=== PATIENT | male | born 1935 | race Caucasian/White ===

== ENCOUNTER → 2019-06-15 09:50 | Outpatient (BNVA) | payer MEDICARE, SELFPAY | PROVIDERS: Family Provider Nurse Practitioner Family; PCP Nurse Practitioner Family; Visit Provider Family Medicine | DX: I10 Essential (primary) hypertension (principal) | CPT/HCPCS: 80053; 80061; 85025 ==

== ENCOUNTER → 2019-11-15 11:16 | Outpatient (BNVA) | payer MEDICARE, SELFPAY | PROVIDERS: Family Provider Nurse Practitioner Family; PCP Nurse Practitioner Family; Visit Provider Nurse Practitioner Family | DX: I10 Essential (primary) hypertension (principal); M54.31 Sciatica, right side; N18.3 Chronic kidney disease, stage 3 (moderate); E78.5 Hyperlipidemia, unspecified | CPT/HCPCS: 80053; 80061; 85025 ==

== ENCOUNTER → 2020-08-18 11:41 | Outpatient (BNVA) | payer MEDICARE, SELFPAY | PROVIDERS: Family Provider Nurse Practitioner Family; PCP Nurse Practitioner Family; Visit Provider Nurse Practitioner Family | DX: I10 Essential (primary) hypertension (principal) | CPT/HCPCS: 80053; 80061; 82306; 82607; 84443; 85025 ==

== ENCOUNTER → 2020-08-24 10:22 | Outpatient (BNVA) | payer MEDICARE, SELFPAY | PROVIDERS: Family Provider Nurse Practitioner Family; PCP Nurse Practitioner Family; Visit Provider Nurse Practitioner Family | DX: R73.9 Hyperglycemia, unspecified (principal); N18.30 Chronic kidney disease, stage 3 unspecified | CPT/HCPCS: 83036 ==

== ENCOUNTER → 2020-10-06 09:25 | Outpatient (BNVA) | payer MEDICARE, SELFPAY | PROVIDERS: Family Provider Nurse Practitioner Family; PCP Nurse Practitioner Family; Visit Provider Nurse Practitioner Family | DX: K21.9 Gastro-esophageal reflux disease without esophagitis (principal); M25.562 Pain in left knee; G89.29 Other chronic pain; R53.83 Other fatigue; M54.2 Cervicalgia; M25.511 Pain in right shoulder; M25.512 Pain in left shoulder | CPT/HCPCS: 80053; 82306; 82607; 84550; 85025; 85651; 86038; 86140; 86431 ==

== ENCOUNTER → 2020-10-20 10:05 | Outpatient (BNVA) | payer MEDICARE, SELFPAY | PROVIDERS: Family Provider Nurse Practitioner Family; PCP Nurse Practitioner Family; Visit Provider Nurse Practitioner Family | DX: M25.472 Effusion, left ankle (principal); M79.605 Pain in left leg; M25.50 Pain in unspecified joint | CPT/HCPCS: 73610; 85379; 86618; 86666; 86757 ==

== ENCOUNTER 2020-10-25 11:47 | Outpatient (CLI) | payer MEDICARE, SELFPAY ==
--- NOTE | 2020-10-25 11:54 | USCV_ITS ---
[place] Age: 85 Gender: M : 1935 Exam Date: 10/25/2020 12:22 Ordering Phys: Mikey Kellogg MD Technologist: Danielle Pardo Exam Location: [facility] – [place] Indication: Left leg edema HISTORY: Lower extremity edema. PROCEDURES: Venous duplex imaging was performed in only the left lower extremity. The following venous structures were evaluated: common femoral vein, profunda vein, proximal portion of the greater saphenous vein, superficial femoral vein, and the popliteal vein. In addition, the posterior tibial and peroneal trunk were evaluated. FINDINGS: Normal 2-D Doppler and augmentation and compressibility throughout the lower extremity venous structures. Additional imaging through the proximal calf veins also reveals no thrombus. Limited evaluation of the greater saphenous vein is patent with no thrombus. Cystic area noted in Left popliteal area midline measuring 2.6 x1.0 x1.7 cm. CONCLUSIONS No DVT left lower extremity. Left popliteal fossa Dubois's cyst. Dr. Rebeka Olson DO (Electronically Signed) Final Date: 25 October 2020 14:16 S
== END 2020-10-25 11:48 | disposition home or self-care (01) ==
LOC: RAD 11:51
PROVIDERS: PCP Nurse Practitioner Family; Visit Provider Surgery
DX: R60.0 Localized edema (principal); M71.22 Synovial cyst of popliteal space [Baker], left knee
CPT/HCPCS: 93971

== ENCOUNTER → 2020-12-05 13:14 | Outpatient (BNVA) | payer MEDICARE, SELFPAY | PROVIDERS: PCP Nurse Practitioner Family; Visit Provider Nurse Practitioner Family | DX: Z20.822 Contact with and (suspected) exposure to COVID-19 (principal); L02.92 Furuncle, unspecified | CPT/HCPCS: 87635 ==

== ENCOUNTER → 2021-02-01 12:40 | Outpatient (BNVA) | payer MEDICARE, SELFPAY | PROVIDERS: PCP Nurse Practitioner Family; Visit Provider Internal Medicine | DX: M06.9 Rheumatoid arthritis, unspecified (principal); M25.50 Pain in unspecified joint; R70.0 Elevated erythrocyte sedimentation rate; Z11.59 Encounter for screening for other viral diseases; Z11.1 Encounter for screening for respiratory tuberculosis; N18.30 Chronic kidney disease, stage 3 unspecified; R53.83 Other fatigue; Z87.891 Personal history of nicotine dependence | CPT/HCPCS: 99204 ==

== ENCOUNTER → 2021-02-06 09:21 | Outpatient (BNVA) | payer MEDICARE, SELFPAY | PROVIDERS: PCP Nurse Practitioner Family; Visit Provider Internal Medicine | DX: N18.30 Chronic kidney disease, stage 3 unspecified (principal); Z11.59 Encounter for screening for other viral diseases; Z11.1 Encounter for screening for respiratory tuberculosis | CPT/HCPCS: 36415; 80053; 81003; 82550; 82728; 83516; 84443; 85025; 86140; 86480; 86704; 86803; 87340 ==

== ENCOUNTER 2021-02-12 07:58 | Outpatient (CLI) | payer MEDICARE, SELFPAY ==
--- NOTE | 2021-02-12 08:05 | XR_ITS ---
WS: [id number] TECHNIQUE: 2 views of the left hand CLINICAL INFORMATION: N18.3 - Chronic kidney disease, stage 3 (moderate) COMPARISON: None. FINDINGS: Normal metacarpals. Mild degenerative narrowing first second and third MCP joints. 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 Mild degenerative narrowing second and third DIP joints. No signific ant erosive changes. Radiocarpal joint: Moderate narrowing Carpal bones: Normal. XR/XR hand LT 2V [id number] IMPRESSION: 1. 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 2. No significant erosive changes.
--- NOTE | 2021-02-12 08:05 | XR_ITS ---
WS: [id number] TECHNIQUE: 2 views of the right hand CLINICAL INFORMATION: N18.3 - Chronic kidney disease, stage 3 (moderate) COMPARISON: None. FINDINGS: Normal metacarpals. Normal MCP joint. Metacarpal heads are normal in appearance. Mild degenerative na rrowing worse at the third DIP joint. IP joints are otherwise normal. No significant erosive changes. Hypertrophic spurring at the first DIP. Vascular calcifications. Radiocarpal joint: Mild degenerative narrowing Carpal bones: Normal. XR/XR hand RT 2V [id number] IMPRESSION: 1. Mild degenerative narrowing at the radiocarpal joint. 2. Degenerative narrowing third DIP joint. 3. No significant erosive changes.
--- NOTE | 2021-02-12 08:05 | XR_ITS ---
WS: [id number] SHOULDER RIGHT TECHNIQUE: 3 views of the right shoulder CLINICAL INFORMATION: N18.3 - Chronic kidney disease, stage 3 (moderate) COMPARISON: None. FINDINGS: Normal acromioclavicular joint. Normal glenohumeral joint. Acromion is normal in appearance. Normal g lenoid. No evidence of acute fracture dislocation. XR/XR shoulder RT min 2V* [id number] IMPRESSION: Normal right shoulder.
--- NOTE | 2021-02-12 08:05 | XR_ITS ---
WS: [id number] SHOULDER LEFT TECHNIQUE: 3 views of the left shoulder CLINICAL INFORMATION: M06.9 - Rheumatoid arthritis, unspecified COMPARISON: None. FINDINGS: Normal acromioclavicular joint. Normal glenohumeral joint. Acromion is normal in appearance. Normal g lenoid. No evidence of acute fracture dislocation. Sternotomy with mediastinal clips. Aortic arch calcification. XR/XR shoulder LT min 2V* [id number] IMPRESSION: Normal left shoulder.
== END 2021-02-12 07:59 | disposition home or self-care (01) ==
PROVIDERS: PCP Nurse Practitioner Family; Visit Provider Internal Medicine
DX: N18.30 Chronic kidney disease, stage 3 unspecified (principal); M06.9 Rheumatoid arthritis, unspecified
CPT/HCPCS: 73030; 73120

== ENCOUNTER → 2021-05-21 11:05 | Outpatient (BNVA) | payer MEDICARE, SELFPAY | PROVIDERS: PCP Nurse Practitioner Family; Visit Provider Internal Medicine | DX: R70.0 Elevated erythrocyte sedimentation rate; Z79.899 Other long term (current) drug therapy; M25.50 Pain in unspecified joint; N18.30 Chronic kidney disease, stage 3 unspecified | CPT/HCPCS: 80053; 85025; 85651; 86140 ==

== ENCOUNTER → 2021-05-24 12:27 | Outpatient (BNVA) | payer MEDICARE, SELFPAY | PROVIDERS: PCP Nurse Practitioner Family; Visit Provider Internal Medicine | DX: R70.0 Elevated erythrocyte sedimentation rate (principal); M05.9 Rheumatoid arthritis with rheumatoid factor, unspecified; Z79.899 Other long term (current) drug therapy; N18.9 Chronic kidney disease, unspecified; D64.9 Anemia, unspecified; Z87.891 Personal history of nicotine dependence | CPT/HCPCS: 99214 ==

== ENCOUNTER → 2021-06-27 10:13 | Outpatient (BNVA) | payer MEDICARE, SELFPAY | PROVIDERS: PCP Nurse Practitioner Family; Visit Provider Nurse Practitioner Family | DX: M05.9 Rheumatoid arthritis with rheumatoid factor, unspecified (principal); R70.0 Elevated erythrocyte sedimentation rate; Z79.899 Other long term (current) drug therapy; Z23 Encounter for immunization | CPT/HCPCS: 80053; 85025 ==

== ENCOUNTER → 2021-07-05 11:21 | Outpatient (BNVA) | payer MEDICARE, SELFPAY | PROVIDERS: PCP Nurse Practitioner Family; Visit Provider Internal Medicine | DX: R70.0 Elevated erythrocyte sedimentation rate (principal); M05.9 Rheumatoid arthritis with rheumatoid factor, unspecified; N18.9 Chronic kidney disease, unspecified; F17.220 Nicotine dependence, chewing tobacco, uncomplicated | CPT/HCPCS: 99214 ==

== ENCOUNTER → 2021-07-16 10:27 | Outpatient (BNVA) | payer MEDICARE, SELFPAY | PROVIDERS: PCP Nurse Practitioner Family; Visit Provider Nurse Practitioner Family | DX: E55.9 Vitamin D deficiency, unspecified (principal); E78.5 Hyperlipidemia, unspecified | CPT/HCPCS: 80061; 82306 ==

== ENCOUNTER → 2021-09-11 14:35 | Outpatient (BNVA) | payer MEDICARE, SELFPAY | PROVIDERS: PCP Nurse Practitioner Family; Visit Provider Internal Medicine | DX: R70.0 Elevated erythrocyte sedimentation rate (principal); M06.9 Rheumatoid arthritis, unspecified; N18.9 Chronic kidney disease, unspecified; E55.9 Vitamin D deficiency, unspecified; F17.220 Nicotine dependence, chewing tobacco, uncomplicated | CPT/HCPCS: 99214 ==

== ENCOUNTER → 2022-06-25 17:25 | Outpatient (BNVA) | payer MEDICARE, SELFPAY | PROVIDERS: PCP Nurse Practitioner Family; Visit Provider Nurse Practitioner Family | DX: E78.5 Hyperlipidemia, unspecified (principal); E55.9 Vitamin D deficiency, unspecified; L02.92 Furuncle, unspecified | CPT/HCPCS: 80053; 80061; 81000; 82043; 82306; 82607; 83735; 84443; 85025; 87070; 87075; 87077; 87184; 87205 ==

== ENCOUNTER → 2022-08-20 14:39 | Outpatient (BNVA) | payer MEDICARE, SELFPAY | PROVIDERS: PCP Nurse Practitioner Family; Visit Provider Internal Medicine | DX: M06.9 Rheumatoid arthritis, unspecified (principal); M25.50 Pain in unspecified joint; Z79.899 Other long term (current) drug therapy; R70.0 Elevated erythrocyte sedimentation rate; N18.9 Chronic kidney disease, unspecified; R21 Rash and other nonspecific skin eruption | CPT/HCPCS: 99214 ==

== ENCOUNTER → 2022-08-28 13:52 | Outpatient (BNVA) | payer MEDICARE, SELFPAY | PROVIDERS: PCP Nurse Practitioner Family; Referring Provider Internal Medicine; Visit Provider Orthopaedic Surgery | DX: M70.22 Olecranon bursitis, left elbow (principal) | CPT/HCPCS: 20605; 99203 ==

== ENCOUNTER → 2022-10-31 14:20 | Outpatient (BNVA) | payer MEDICARE, SELFPAY | PROVIDERS: PCP Nurse Practitioner Family; Visit Provider Internal Medicine | DX: M06.9 Rheumatoid arthritis, unspecified (principal); E55.9 Vitamin D deficiency, unspecified; R70.0 Elevated erythrocyte sedimentation rate; N18.9 Chronic kidney disease, unspecified; M70.20 Olecranon bursitis, unspecified elbow; R21 Rash and other nonspecific skin eruption | CPT/HCPCS: 99213 ==

== ENCOUNTER → 2022-11-14 15:29 | Outpatient (BNVA) | payer MEDICARE, SELFPAY | PROVIDERS: PCP Nurse Practitioner Family; Visit Provider Internal Medicine | DX: M06.9 Rheumatoid arthritis, unspecified (principal); M25.50 Pain in unspecified joint; Z79.899 Other long term (current) drug therapy | CPT/HCPCS: 80053; 85025; 85651; 86140 ==

== ENCOUNTER → 2023-02-27 13:25 | Outpatient (BNVA) | payer MEDICARE, SELFPAY | PROVIDERS: PCP Nurse Practitioner Family; Visit Provider Internal Medicine | DX: M70.20 Olecranon bursitis, unspecified elbow (principal); M06.9 Rheumatoid arthritis, unspecified; E55.9 Vitamin D deficiency, unspecified; N18.9 Chronic kidney disease, unspecified; R70.0 Elevated erythrocyte sedimentation rate | CPT/HCPCS: 99214 ==

== ENCOUNTER → 2023-03-04 10:04 | Outpatient (BNVA) | payer MEDICARE, SELFPAY | PROVIDERS: PCP Nurse Practitioner Family; Visit Provider Nurse Practitioner Family | DX: E55.9 Vitamin D deficiency, unspecified (principal); M06.9 Rheumatoid arthritis, unspecified; M70.20 Olecranon bursitis, unspecified elbow; N18.9 Chronic kidney disease, unspecified | CPT/HCPCS: 80053; 81000; 82550; 85025; 85651; 86140 ==

== ENCOUNTER 2023-07-04 04:45 | Emergency (ER) | payer MEDICARE, SELFPAY ==
[2023-07-04 04:52] VITALS: BP 187/68; PULSE 61; RESP 16; TEMP 36.4; O2SAT 94
[2023-07-04 05:29] LABS: Basophils % 0.7 %; Eosinophils # 0.2 10^3/uL (0.0-0.8); Hematocrit 35.6 % (37-53); Lymphocytes # 1.3 10^3/uL (0.8-4.8); Lymphocytes % 22.4 %; Mean Corpuscular HGB Conc 31.2 g/dL (30-55); Mean Corpuscular Hemoglobin 28.2 pg (27-33); Mean Corpuscular Volume 90.4 fl (82-101); Mean Platelet Volume 12.5 fL (7.4-10.4); Monocytes # 0.7 10^3/uL (0.2-0.9); Monocytes % 11.9 %; Neutrophils # 3.63 10^3/uL (1.8-7.7); Neutrophils % 60.8 %; Nucleated Red Blood Cells % 0 %; Platelet Count 118 10^3/cmm (157-399); Red Blood Count 3.94 10^6/uL (3.85-5.65); Red Cell Distribution Width 15.9 % (12.1-15.1); White Blood Count 5.97 10^3/uL (3.29-11.43)
--- NOTE | 2023-07-04 05:31 | CTR_ITS ---
PROCEDURE INFORMATION: Exam: CT Abdomen And Pelvis Without Contrast Exam date and time: 07/04/2023 5:43 AM Age: 88 years old Clinical indication: Abdominal pain; Additional info: Abd pain TECHNIQUE: Imaging protocol: Computed tomography of the abdomen and pelvis without contrast. Radiation optimization: All CT scans at this facility use at least one of these dose optimization techniques: automated exposure control; mA and/or kV adjustment per patient size (includes targeted exams where dose is matched to clinical indication); or iterative reconstruction. COMPARISON: No relevant prior studies available. RADIATION DOSE METRICS: Total DLP (mGy-cm): 588.63 FINDINGS: Diaphragm: Moderate hiatal hernia. Liver: Hepatic cysts. Gallbladder and bile ducts: Cholelithiasis. Pancreas: Normal. No ductal dilation. Spleen: Normal. No splenomegaly. Adrenal glands: Normal. No mass. Kidneys and ureters: Normal. No hydronephrosis. Stomach and bowel: Diverticulosis without evidence of diverticulitis. Appendix: No evidence of appendicitis. Intraperitoneal space: Unremarkable. No free air. No significant fluid collection. Vasculature: Unremarkable. No abdominal aortic aneurysm. Lymph nodes: Unremarkable. No enlarged lymph nodes. Urinary bladder: Unremarkable as visualized. Reproductive: Enlarged prostate. Bones/joints: Unremarkable. No acute fracture. Soft tissues: Unremarkable. CT/CT abdomen pelvis wo con [id number] IMPRESSION: 1. No acute subdiaphragmatic pathology. 2. Cholelithiasis.
--- NOTE | 2023-07-04 05:32 | W.ED.ABDPA2 ---
Documented by User: Mick Tolbert MD 07/04/23 07:54 HPI - Abdominal Pain General: Chief Complaint: Abdominal Pain Stated Complaint: Right side abd pain Time Seen by Provider: 07/04/23 04:48 History of Present Illness: 88-year-old male presents emergency department with complaints of right upper and lower quadrant abdominal pain. He states this started last night at approximately midnight and has continued to worsen. He states that he has had nausea without vomiting. He denies fevers chills or night sweats. He states he had a normal bowel movement yesterday evening. He denies hematic emesis or hematochezia. He does have a history of coronary artery disease with a coronary artery bypass graft in 1996. His son states that he did provide the patient with a single sublingual nitroglycerin and this did not relieve the patient's pain/discomfort. He currently describes the pain as a 3 out of 10 and cramping. Associated Symptoms: Reports nausea Review of Systems General: Reports: 10 or more systems reviewed and unremarkable except in HPI and below GI: Reports: abdominal pain and nausea [facility] ED PFSH: Medical History Olecranon bursitis GERD (gastroesophageal reflux disease) CAD in [place] artery Panlobular emphysema Thrombocytopenia Dyslipidemia CKD (chronic kidney disease), stage III Surgical History History of cataract extraction Social History Smoking and tobacco/nicotine status: current every day tobacco/nicotine user smokeless tobacco Smokeless tobacco user: chewing tobacco Second hand smoke exposure: No Alcohol intake: never Substance/Drug Use: never Caregiver/support person: Yes (family) Lives independently: Yes Household members: none Marital status: / service: No Current occupational status: retired Current gender identity: Male Special lila needs: No Agree to transfusion: Yes Physical Exam Narrative: EXAM NARRATIVE: Constitutional: the patient appears well nourished and of normal development. Vital signs as documented. No acute distress at present. Alert and oriented-to person, place, time and situation. Head, eyes, ears, nose, mouth, throat: Normocephalic, atraumatic. Pupils-equal, round, reactive to light. No scleral icterus. Normal-appearing external ears. Normal appearing nasal turbinates, no drainage. No obvious oral lesions, posterior oropharynx without erythema or exudates. Neck: Supple, trachea is midline, no lymphadenopathy, no jugular venous distension, thyromegaly, or carotid bruits. Carotid upstrokes are brisk bilaterally. Lungs: clear to auscultation to all lung mujica. Symmetrical rise and fall of chest, no obvious signs of increased work of breathing at present. Cardiac: Regular rate and rhythm, positive S1, S2. No murmurs, rubs or gallops that I can appreciate Abdomen: Soft, right upper and right lower quadrant tender to palpation, positive Lauren sign. Normal active bowel sounds to all quadrants. No palpable masses, no organomegaly and abdominal bruits. Extremities: 2+ pulses in the upper extremities that are equal bilaterally, 2+ pulses in the lower extremities that are equal bilaterally. Non-edematous. Moves all extremities well, sensation to all extremities are noted. Skin: Warm, dry, intact. Course Vital Signs: Vital signs: Vital Signs Temperature 97.5 F L 07/04/23 04:52 Pulse Rate 63 07/04/23 08:25 Respiratory Rate 16 07/04/23 07:33 Blood Pressure 196/84 07/04/23 08:25 Pulse Oximetry 95 07/04/23 08:25 Oxygen Delivery Me thod Room Air 07/04/23 07:33 MDM - Abdominal Pain Medical Decision Making Physical exam completed and documented, I will obtain laboratory evaluation to include a CBC, CMP, lipase, urinalysis, and a CT scan of the patient's abdomen pelvis to evaluate for possible differential diagnosis of bowel obstruction, incarcerated hernia, abdominal wall strain, abdominal wall hematoma, possible colitis, ascending cholangitis, cholecystitis, cholelithiasis and diverticulitis. Medical Records I reviewed the patient's medical records. Lab Data I reviewed the patient's lab results. 07/04/23 04:58 07/04/23 04:58 Labs/Radiology: Radiology Impressions Abdomen/Pelvis CT 07/04/23 05:31 IMPRESSION: 1. No acute subdiaphragmatic pathology. 2. Cholelithiasis. Laboratory Results WBC 5.97 10^3/uL (3.29-11.43) 07/04/23 04:58 RBC 3.94 10^6/uL (3.85-5.65) 07/04/23 04:58 Hgb 11.10 g/dL (11.27-16.99) L 07/04/23 04:58 Hct 35.6 % (37-53) L 07/04/23 04:58 MCV 90.4 fl (82-101) 07/04/23 04:58 MCH 28.2 pg (27-33) 07/04/23 04:58 MCHC 31.2 g/dL (30-55) 07/04/23 04:58 RDW 15.9 % (12.1-15.1) H 07/04/23 04:58 Plt Count 118 10^3/cmm (157-399) L 07/04/23 04:58 MPV 12.5 fL (7.4-10.4) H 07/04/23 04:58 Neut % (Auto) 60.8 % 07/04/23 04:58 Lymph % (Auto) 22.4 % 07/04/23 04:58 [place] % (Auto) 11.9 % 07/04/23 04:58 Eos % (Auto) 4.0 % 07/04/23 04:58 Baso % (Auto) 0.7 % 07/04/23 04:58 Neut # (Auto) 3.63 10^3/uL (1.8-7.7) 07/04/23 04:58 Lymph # (Auto) 1.3 10^3/uL (0.8-4.8) 07/04/23 04:58 [place] # (Auto) 0.7 10^3/uL (0.2-0.9) 07/04/23 04:58 Eos # (Auto) 0.2 10^3/uL (0.0-0.8) 07/04/23 04:58 Baso # (Auto) 0.0 10^3/uL (0.0-0.1) 07/04/23 04:58 Nucleated RBC % (auto) 0 % 07/04/23 04:58 Nucleated RBCs # 0.0 /100WBC 07/04/23 04:58 Sodium 138 mmol/L (136-145) 07/04/23 04:58 Potassium 3.9 mmol/L (3.5-5.1) 07/04/23 04:58 Chloride 104 mmol/L (98-107) 07/04/23 04:58 Carbon Dioxide 24 mmol/L (22-29) 07/04/23 04:58 Anion Gap 13.9 (5-19) 07/04/23 04:58 BUN 30 mg/dL (8-23) H 07/04/23 04:58 Creatinine 1.3 mg/dL (0.7-1.2) H 07/04/23 04:58 GFR Calculation Not Reportable 07/04/23 04:58 Glucose 142 mg/dL (65-115) H 07/04/23 04:58 Calculated Osmolality 295 mOsm/kg (285-295) 07/04/23 04:58 Calcium 8.6 mg/dL (8.5-10.5) 07/04/23 04:58 Total Bilirubin 0.2 mg/dL (0.15-1.2) 07/04/23 04:58 AST 16 U/L (0-40) 07/04/23 04:58 ALT 12 U/L (0-41) 07/04/23 04:58 Alkaline Phosphatase 75 U/L (40-130) 07/04/23 04:58 Total Protein 7.3 g/dL (6.6-8.7) 07/04/23 04:58 Albumin 3.8 g/dL (3.5-5.2) 07/04/23 04:58 Globulin 3.5 g/dL (1.3-4.6) 07/04/23 04:58 Lipase 39 U/L (13-60) 07/04/23 04:58 Urine Color Light yellow (Yellow) 07/04/23 05:20 Urine Appearance Clear (CLEAR) 07/04/23 05:20 Urine pH 5 (5-7) 07/04/23 05:20 Ur Specific [place] 1.010 (1.005-1.030) 07/04/23 05:20 Urine Protein Trace (Negative) 07/04/23 05:20 Urine Glucose (UA) Norm (Normal) 07/04/23 05:20 Urine Ketones Negative (Negative) 07/04/23 05:20 Urine Blood Neg (Negative) 07/04/23 05:20 Urine Nitrate Negative (Negative) 07/04/23 05:20 Urine Bilirubin Neg (Negative) 07/04/23 05:20 Urine Urobilinogen Neg mg/dL (Negative) 07/04/23 05:20 Ur Leukocyte Esterase Negative (Negative) 07/04/23 05:20 Urine RBC None /hpf (0-2) 07/04/23 05:20 Urine WBC None /hpf (0-5) 07/04/23 05:20 Ur Squamous Epith Cells None /hpf (0-5) 07/04/23 05:20 Amorphous Sediment Not Reportable 07/04/23 05:20 Urine Bacteria Trace /hpf (NONE) 07/04/23 05:20 Urine Mucus 1+ /hpf 07/04/23 05:20 All radiology interpretation(s) finalized by discharge Discharge Plan Discharge Patient Disposition: Home Clinical Impression: Asymptomatic cholelithiasis Constipation Qualifiers: Constipation type: unspecified constipation type Qualified Code(s): K59.00 - Constipation, unspecified Condition: Stable Prescriptions: No Action aspirin 325 mg Tablet 325 mg PO QAM Vitamin D3 Gummies 1 tab PO DAILY atorvastatin 40 mg tablet 40 mg PO QAM folic acid 1 mg tablet 1 mg PO QAM metoprolol succinate 25 mg tablet extended release 24 hr 25 mg PO BEDTIME PRN (Reason: Blood Pressure) lisinopril-hydrochlorothiazide 10-12.5 mg tablet 1 tab PO QAM esomeprazole magnesium 20 mg capsule,delayed release(DR/EC) 20 mg PO QAM cholecalciferol (vitamin D3) 1,250 mcg (50,000 unit) capsule 50,000 unit PO Q7D leflunomide 20 mg tablet 10 mg PO QAM Discharge Orders: Discharge ED (Routine); Ordered 07/04/23 Ordered By: Lencho Henry Referrals: Ena Bedoya, GABRIELE [Primary Care Provider] - Discharge Diet: Usual diet Discharge Activity: Increase activity as tolerated Patient Instructions: Constipation (ED), Opioid Safety, Pain Management Activity Restrictions/Additional Instructions: Thank you for choosing [facility] for your healthcare needs today. Please realize this is an emergency room and that we are providing you with a medical screening exam and this may not be complete and all inclusive of all the testing and or work up that you may need to determine your ailment or severity of your illness. It is very important that you follow up as instructed or that you return to the Emergency Department should you have concerns or if your condition changes or worsens in any way. You were seen today for abdominal pain CT shows a large amount of stool in the colon also shows gallbladder stones however there is no sign of acute infection in your bilirubin and liver enzymes are normal. Recommend [id number] laxatives to relieve the constipation follow-up with your primary care doctor as needed. Sign Out Sign Out Data: Patient Sign Out occurred on 07/04/23 at 06:41. Patient's care was discussed, and care was transferred from Mick Tolbert MD to Lencho Henry DO. Coding Level of Care Code ED Senior Payroll Manager for [employer] Documented by User: Lencho Henry DO 07/08/23 06:26 HPI - Abdominal Pain General: Chief Complaint: Abdominal Pain Stated Complaint: Right side abd pain Time Seen by Provider: 07/04/23 04:48 PFSH ED PFSH: Medical History Olecranon bursitis GERD (gastroesophageal reflux disease) CAD in [place] artery Panlobular emphysema Thrombocytopenia Dyslipidemia CKD (chronic kidney disease), stage III Surgical History History of cataract extraction Social History Smoking and tobacco/nicotine status: current every day tobacco/nicotine user smokeless tobacco Smokeless tobacco user: chewing tobacco Second hand smoke exposure: No Alcohol intake: never Substance/Drug Use: never Caregiver/support person: Yes (family) Lives independently: Yes Household members: none Marital status: / service: No Current occupational status: retired Current gender identity: Male Special lila needs: No Agree to transfusion: Yes Course Vital Signs: Vital signs: Vital Signs Temperature 97.5 F L 07/04/23 04:52 Pulse Rate 63 07/04/23 08:25 Respiratory Rate 16 07/04/23 07:33 Blood Pressure 196/84 07/04/23 08:25 Pulse Oximetry 95 07/04/23 08:25 Oxygen Delivery Me thod Room Air 07/04/23 07:33 MDM - Abdominal Pain Medical Decision Making Physical exam completed and documented, I will obtain laboratory evaluation to include a CBC, CMP, lipase, urinalysis, and a CT scan of the patient's abdomen pelvis to evaluate for possible differential diagnosis of bowel obstruction, incarcerated hernia, abdominal wall strain, abdominal wall hematoma, possible colitis, ascending cholangitis, cholecystitis, cholelithiasis and diverticulitis. Care assumed from Dr. Tolbert at change of shift. CT shows constipation asymptomatic cholelithiasis. Discharge home aggressive use of laxatives to relieve constipation. If has recurrence of symptoms follow-up with primary care or general surgery can return to the emergency room if necessary if has any blood in the stool or develops fever or worsening pain return. Lab Data 07/04/23 04:58 07/04/23 04:58 Labs/Radiology: Radiology Impressions Abdomen/Pelvis CT 07/04/23 05:31 IMPRESSION: 1. No acute subdiaphragmatic pathology. 2. Cholelithiasis. Laboratory Results WBC 5.97 10^3/uL (3.29-11.43) 07/04/23 04:58 RBC 3.94 10^6/uL (3.85-5.65) 07/04/23 04:58 Hgb 11.10 g/dL (11.27-16.99) L 07/04/23 04:58 Hct 35.6 % (37-53) L 07/04/23 04:58 MCV 90.4 fl (82-101) 07/04/23 04:58 MCH 28.2 pg (27-33) 07/04/23 04:58 MCHC 31.2 g/dL (30-55) 07/04/23 04:58 RDW 15.9 % (12.1-15.1) H 07/04/23 04:58 Plt Count 118 10^3/cmm (157-399) L 07/04/23 04:58 MPV 12.5 fL (7.4-10.4) H 07/04/23 04:58 Neut % (Auto) 60.8 % 07/04/23 04:58 Lymph % (Auto) 22.4 % 07/04/23 04:58 [place] % (Auto) 11.9 % 07/04/23 04:58 Eos % (Auto) 4.0 % 07/04/23 04:58 Baso % (Auto) 0.7 % 07/04/23 04:58 Neut # (Auto) 3.63 10^3/uL (1.8-7.7) 07/04/23 04:58 Lymph # (Auto) 1.3 10^3/uL (0.8-4.8) 07/04/23 04:58 [place] # (Auto) 0.7 10^3/uL (0.2-0.9) 07/04/23 04:58 Eos # (Auto) 0.2 10^3/uL (0.0-0.8) 07/04/23 04:58 Baso # (Auto) 0.0 10^3/uL (0.0-0.1) 07/04/23 04:58 Nucleated RBC % (auto) 0 % 07/04/23 04:58 Nucleated RBCs # 0.0 /100WBC 07/04/23 04:58 Sodium 138 mmol/L (136-145) 07/04/23 04:58 Potassium 3.9 mmol/L (3.5-5.1) 07/04/23 04:58 Chloride 104 mmol/L (98-107) 07/04/23 04:58 Carbon Dioxide 24 mmol/L (22-29) 07/04/23 04:58 Anion Gap 13.9 (5-19) 07/04/23 04:58 BUN 30 mg/dL (8-23) H 07/04/23 04:58 Creatinine 1.3 mg/dL (0.7-1.2) H 07/04/23 04:58 GFR Calculation Not Reportable 07/04/23 04:58 Glucose 142 mg/dL (65-115) H 07/04/23 04:58 Calculated Osmolality 295 mOsm/kg (285-295) 07/04/23 04:58 Calcium 8.6 mg/dL (8.5-10.5) 07/04/23 04:58 Total Bilirubin 0.2 mg/dL (0.15-1.2) 07/04/23 04:58 AST 16 U/L (0-40) 07/04/23 04:58 ALT 12 U/L (0-41) 07/04/23 04:58 Alkaline Phosphatase 75 U/L (40-130) 07/04/23 04:58 Total Protein 7.3 g/dL (6.6-8.7) 07/04/23 04:58 Albumin 3.8 g/dL (3.5-5.2) 07/04/23 04:58 Globulin 3.5 g/dL (1.3-4.6) 07/04/23 04:58 Lipase 39 U/L (13-60) 07/04/23 04:58 Urine Color Light yellow (Yellow) 07/04/23 05:20 Urine Appearance Clear (CLEAR) 07/04/23 05:20 Urine pH 5 (5-7) 07/04/23 05:20 Ur Specific [place] 1.010 (1.005-1.030) 07/04/23 05:20 Urine Protein Trace (Negative) 07/04/23 05:20 Urine Glucose (UA) Norm (Normal) 07/04/23 05:20 Urine Ketones Negative (Negative) 07/04/23 05:20 Urine Blood Neg (Negative) 07/04/23 05:20 Urine Nitrate Negative (Negative) 07/04/23 05:20 Urine Bilirubin Neg (Negative) 07/04/23 05:20 Urine Urobilinogen Neg mg/dL (Negative) 07/04/23 05:20 Ur Leukocyte Esterase Negative (Negative) 07/04/23 05:20 Urine RBC None /hpf (0-2) 07/04/23 05:20 Urine WBC None /hpf (0-5) 07/04/23 05:20 Ur Squamous Epith Cells None /hpf (0-5) 07/04/23 05:20 Amorphous Sediment Not Reportable 07/04/23 05:20 Urine Bacteria Trace /hpf (NONE) 07/04/23 05:20 Urine Mucus 1+ /hpf 07/04/23 05:20 Discharge Plan Discharge Patient Disposition: Home Clinical Impression: Asymptomatic cholelithiasis Constipation Qualifiers: Constipation type: unspecified constipation type Qualified Code(s): K59.00 - Constipation, unspecified Condition: Stable Prescriptions: No Action aspirin 325 mg Tablet 325 mg PO QAM Vitamin D3 Gummies 1 tab PO DAILY atorvastatin 40 mg tablet 40 mg PO QAM folic acid 1 mg tablet 1 mg PO QAM metoprolol succinate 25 mg tablet extended release 24 hr 25 mg PO BEDTIME PRN (Reason: Blood Pressure) lisinopril-hydrochlorothiazide 10-12.5 mg tablet 1 tab PO QAM esomeprazole magnesium 20 mg capsule,delayed release(DR/EC) 20 mg PO QAM cholecalciferol (vitamin D3) 1,250 mcg (50,000 unit) capsule 50,000 unit PO Q7D leflunomide 20 mg tablet 10 mg PO QAM Discharge Orders: Discharge ED (Routine); Ordered 07/04/23 Ordered By: Lencho Henry Referrals: Ena Bedoya FNP [Primary Care Provider] - Discharge Diet: Usual diet Discharge Activity: Increase activity as tolerated Patient Instructions: Constipation (ED), Opioid Safety, Pain Management Activity Restrictions/Additional Instructions: Thank you for choosing [facility] for your healthcare needs today. Please realize this is an emergency room and that we are providing you with a medical screening exam and this may not be complete and all inclusive of all the testing and or work up that you may need to determine your ailment or severity of your illness. It is very important that you follow up as instructed or that you return to the Emergency Department should you have concerns or if your condition changes or worsens in any way. You were seen today for abdominal pain CT shows a large amount of stool in the colon also shows gallbladder stones however there is no sign of acute infection in your bilirubin and liver enzymes are normal. Recommend [id number] laxatives to relieve the constipation follow-up with your primary care doctor as needed. Sign Out Sign Out Data: Patient Sign Out occurred on 07/04/23 at 06:41. Patient's care was discussed, and care was transferred from Mick Tolbert MD to Lencho Henry DO. Coding Level of Care Code ED Senior Payroll Manager for Jolynn Yin
[2023-07-04 05:40] LABS: Alanine Aminotransferase 12 U/L (0-41); Albumin Level 3.8 g/dL (3.5-5.2); Alkaline Phosphatase 75 U/L (40-130); Anion Gap 13.9 (5-19); Aspartate Amino Transferase 16 U/L (0-40); Blood Urea Nitrogen 30 mg/dL (8-23); Calcium 8.6 mg/dL (8.5-10.5); Carbon Dioxide 24 mmol/L (22-29); Chloride 104 mmol/L (98-107); Creatinine Clr Calc Pharmacy 39.6764; Globulin 3.5 g/dL (1.3-4.6); Glucose 142 mg/dL (65-115); Osmolality Calculated 295 mOsm/kg (285-295); Potassium 3.9 mmol/L (3.5-5.1); Sodium 138 mmol/L (136-145); Total Bilirubin 0.2 mg/dL (0.15-1.2); Total Protein 7.3 g/dL (6.6-8.7)
[2023-07-04 05:42] LABS: Add Urine Culture? No; Bacteria Urine TRACE /hpf; Bilirubin Urine Neg (Negative); Blood Urine Neg (Negative); Glucose Urine UA Norm (Normal); Ketones Urine Negative (Negative); Leukocyte Esterase Urine Negative (Negative); Mucus Urine 1+ /hpf; Nitrate Urine Negative (Negative); Protein Urine Trace (Negative); Urine Appearance Clear (CLEAR); Urine Color Light yellow (Yellow); Urobilinogen Urine Neg (Negative); pH Urine 5 (5-7)
[2023-07-04 05:56] LABS: Lipase 39 U/L (13-60)
[2023-07-04 06:32] VITALS: BP 145/70; PULSE 55; RESP 16; O2SAT 96
[2023-07-04 07:33] VITALS: BP 189/70; PULSE 61; RESP 16; O2SAT 96
--- NOTE | 2023-07-04 07:37 | PC.PHAR ---
pt states he takes care of his own medications-pt states he takes his metoprolol succ er 25mg hs prn rx filled 06/06/23 90d/s 25mg daily-pt states he takes leflunomide (1/2 tab) 10mg daily ext shows last filled 11/25/22 90d/s 20mg daily-pt states he still takes vit d3 50,000 units q7d pt states last look 2 weeks ago ext shows last filled 08/20/22 98d/s-pt states he also takes a vit d3 gummy otc one gummy a day-notes are made in the pharmacy comments
--- NOTE | 2023-07-04 07:38 | PC.NURSE ---
pt rounding pt resting in bed with a 0/0/ pain. visitor at bedside. no other needs expressed at this time.
[2023-07-04 08:25] VITALS: BP 196/84; PULSE 63; O2SAT 95
== END 2023-07-04 08:26 | disposition home or self-care (01) ==
PROVIDERS: Internal Medicine; Emergency Provider Family Medicine; PCP Nurse Practitioner Family
DX: K80.20 Calculus of gallbladder without cholecystitis without obstruction (principal); K59.00 Constipation, unspecified; Z79.82 Long term (current) use of aspirin; F17.220 Nicotine dependence, chewing tobacco, uncomplicated; I25.10 Atherosclerotic heart disease of native coronary artery without angina pectoris; E78.5 Hyperlipidemia, unspecified; N18.30 Chronic kidney disease, stage 3 unspecified
CPT/HCPCS: 74176; 80053; 81001; 83690; 85025; 99284

== ENCOUNTER → 2023-07-09 13:41 | Outpatient (BNVA) | payer MEDICARE, SELFPAY | PROVIDERS: PCP Nurse Practitioner Family; Visit Provider Nurse Practitioner Family | DX: K80.20 Calculus of gallbladder without cholecystitis without obstruction (principal) | CPT/HCPCS: 80053; 82150; 83690; 85025 ==

== ENCOUNTER → 2023-09-03 14:19 | Outpatient (BNVA) | payer MEDICARE, SELFPAY | PROVIDERS: PCP Nurse Practitioner Family; Visit Provider Nurse Practitioner Family | DX: I10 Essential (primary) hypertension (principal); R73.9 Hyperglycemia, unspecified; E55.9 Vitamin D deficiency, unspecified | CPT/HCPCS: 80053; 80061; 82306; 83036; 84443; 85025 ==

== ENCOUNTER → 2023-09-24 13:45 | Outpatient (BNVA) | payer MEDICARE, SELFPAY | PROVIDERS: PCP Nurse Practitioner Family; Visit Provider Internal Medicine Rheumatology | DX: N18.9 Chronic kidney disease, unspecified (principal); M05.79 Rheumatoid arthritis with rheumatoid factor of multiple sites without organ or systems involvement; K80.20 Calculus of gallbladder without cholecystitis without obstruction; Z79.899 Other long term (current) drug therapy | CPT/HCPCS: 99214 ==

== ENCOUNTER → 2024-11-16 15:00 | Outpatient (BNVA) | payer MEDICARE, SELFPAY | PROVIDERS: PCP Nurse Practitioner Family; Visit Provider Nurse Practitioner Family | DX: K59.00 Constipation, unspecified (principal); I10 Essential (primary) hypertension; Z12.5 Encounter for screening for malignant neoplasm of prostate; R73.9 Hyperglycemia, unspecified | CPT/HCPCS: 80053; 80061; 83036; 84443; 85025; G0103 ==

== ENCOUNTER 2024-11-26 11:28 | Outpatient (CLI) | payer MEDICARE, SELFPAY ==
--- NOTE | 2024-11-26 11:45 | USCV_ITS ---
New Us Age: 89 Gender: M : 1935 Exam Date: 11/26/2024 11:41 Ordering Phys: Ena Bedoya [employer] Technologist: R Exam Location: [facility] [place] Indication: dizziness Risk Factors: Previous Vascular Surgery: Right Brachial BP: / Left Brachial BP: / Right Left Velocity (cm/s) Spectral Plaque Velocity (cm/s) Spectral Plaque Syst/Diast Broadening Syst/Diast Broadening 85.30/ 20.40 Prox CCA 109.00/ 18.70 67.10/ 20.30 Mid CCA 84.20 / 18.00 59.00/ 13.90 Distal CCA 73.00 / 12.20 62.00/ 12.90 Prox ICA 50.00 / 18.30 58.60/ 11.80 Mid ICA 74.00 / 19.30 62.90/ 14.00 Distal ICA 72.40 / 22.60 86.70 ECA 96.80 1.10 ICA/CCA 1.00 Antegrade Vertebral Antegrade 46.80/ 14.60 cm/s 47.10/ 10.90 cm/s Tri Subclavian Tri 87.60 126.2 0 CONCLUSIONS Right ICA stenosis <50%. Moderate atheromatous plaque right carotid bulb/ICA. Left ICA stenosis <50%. Moderate atheromatous plaque left carotid bulb/ICA. Intimal thickening in the common carotid arteries and internal carotid arteries bilaterally. Normal antegrade Doppler flow noted in the right vertebral artery. Normal antegrade Doppler flow noted in the left vertebral artery. Ez Ledesma MD (Electronically Signed) Final Date: 26 November 2024 17:52 S
== END 2024-11-26 11:29 | disposition home or self-care (01) ==
LOC: RAD 11:29
PROVIDERS: PCP Nurse Practitioner Family; Visit Provider Nurse Practitioner Family
DX: I65.23 Occlusion and stenosis of bilateral carotid arteries (principal)
CPT/HCPCS: 93880